=== PATIENT | male | born 1995 | race Caucasian/White ===

== ENCOUNTER 2019-01-24 19:41 | Emergency (ER) | payer OTHER ==
[~2019-01-24] VITALS: Ht 175.3 cm; Wt 96.8 kg
[2019-01-24] MEDS ORDERED: ROBI30SU PO (20:08)
[2019-01-24 21:19] LABS: INFLUENZA A AMPLIFICATION NEGATIVE (NEGATIVE); INFLUENZA B AMPLIFICATION NEGATIVE (NEGATIVE)
[2019-01-24] MEDS ORDERED: guaiFENesin SYRUP 200 MG/10 ML UDC PO ONE (22:00)
[2019-01-24] MEDS ORDERED: FLON1SPR NARES (22:44)
[2019-01-24] MEDS ORDERED: TESS100C PO (22:44)
[2019-01-24] MEDS ORDERED: GUAI100L6 PO (22:44)
--- NOTE | 2019-01-24 22:45 | REP ---
Clinical: Cough and flu-like symptoms . Comparison: None . Technique: PA and lateral. Findings: The mediastinum and cardiac silhouette are normal. The lung fiore are clear and without acute consolidation, effusion, or pneumothorax. The skeletal structures are intact and normal. Impression: 1. No acute cardiopulmonary process. Electronically Signed by Clifford Contreras MD 01/24/2019 10:37 P
[2019-01-24 23:01] VITALS: BP 130/66
== END 2019-01-24 23:03 | disposition home or self-care (01) ==
LOC: M ED 19:41
DX: J06.9 Acute upper respiratory infection, unspecified (principal)